=== PATIENT | male | born 1990 | race Two or more races ===

== ENCOUNTER 2023-12-06 11:17 | Outpatient (REF) | payer OTHER, SELFPAY | END 2023-12-06 11:18 | disposition home or self-care (01) | LOC: HO.BBR 11:17 | PROVIDERS: PCP Student in an Organized Health Care Education/Training Program; Visit Provider Internal Medicine | DX: D75.1 Secondary polycythemia (principal) | CPT/HCPCS: 85014; 85018; 99195 ==

== ENCOUNTER 2024-02-07 11:15 | Outpatient (REF) | payer OTHER, SELFPAY | END 2024-02-07 11:16 | disposition home or self-care (01) | LOC: HO.BBR 11:15 | PROVIDERS: PCP Student in an Organized Health Care Education/Training Program; Visit Provider Internal Medicine | DX: D75.1 Secondary polycythemia (principal) | CPT/HCPCS: 85014; 85018; 99195 ==

== ENCOUNTER 2024-04-24 11:10 | Outpatient (REF) | payer OTHER, SELFPAY | END 2024-04-24 11:11 | disposition home or self-care (01) | LOC: HO.BBR 11:10 | PROVIDERS: PCP Student in an Organized Health Care Education/Training Program; Visit Provider Internal Medicine | DX: D75.1 Secondary polycythemia (principal) | CPT/HCPCS: 85014; 85018; 99195 ==

== ENCOUNTER 2024-07-24 15:43 | Outpatient (REF) | payer OTHER, SELFPAY | END 2024-07-24 15:44 | disposition home or self-care (01) | LOC: HO.BBR 15:43 | PROVIDERS: PCP Student in an Organized Health Care Education/Training Program; Visit Provider Internal Medicine | DX: D75.1 Secondary polycythemia (principal) | CPT/HCPCS: 85018; 99195 ==

== ENCOUNTER 2024-10-23 14:55 | Outpatient (REF) | payer OTHER, SELFPAY | END 2024-10-23 14:56 | disposition home or self-care (01) | LOC: HO.BBR 14:55 | PROVIDERS: PCP Student in an Organized Health Care Education/Training Program; Visit Provider Internal Medicine | DX: D75.1 Secondary polycythemia (principal) | CPT/HCPCS: 85018; 99195 ==

== ENCOUNTER 2025-01-22 15:14 | Outpatient (REF) | payer OTHER, SELFPAY ==
--- OUTSIDE RECORDS SUMMARY | 2025-01-22 16:49 | XMS_ITS | Clinical Summary ---
Author Organization [facility] Address [address] [place] [address] Care Team Providers Care Pull Socket Assembler Name Role Phone Domenico Fuller MD Primary Care Provider [phone] Allergies No known active allergies Medications Medication Sig Dispensed Refills Start Date End Date Status lisinopril (PRINIVIL,ZESTRIL) tablet 10 mg Take 1 tablet (10 mg total) by mouth daily. 0 Active Magnesium 400 MG TABS Take by mouth. 0 Active vitamin D3 (CHOLECALCIFEROL) 1.25 MG (48395 UT) CAPS capsule Take 1 capsule (1.25 mg total) by mouth every 7 days. 0 Active atorvastatin (LIPITOR) tablet 20 mg Take 1 tablet (20 mg total) by mouth daily. 0 Active Active Problems Problem Noted Date Diagnosed Date Polycythemia vera 12/04/2023 Social History Tobacco Use Types Packs/Day Years Used Date Smoking Tobacco: Never Smokeless Tobacco: Never Tobacco Cessation:Counseling Given: Not Answered Alcohol Use Standard Drinks/Week Comments Yes 0 (1 standard drink = 0.6 oz pur e alcohol) socially Sex and Gender Information Value Date Recorded Sex Assigned at Not on file Gender Identity Not on file Sexual Orientation Not on file Job Start Date Occupation Industry Not on file Not on file Not on file Last Filed Vital Signs Vital Sign Reading Time Taken Comments Blood Pressure 156/80 03/06/2024 3:54 PM EDT Pulse 93 03/06/2024 3:54 PM EDT Temperature 36.3 ??C (97.4 ??F) 03/06/2024 3:54 PM ED T Respiratory Rate - - Oxygen Saturation 100% 03/06/2024 3:54 PM EDT Inhaled Oxygen Concentration - - Weight 117.1 kg (258 lb 3.2 oz) 03/06/2024 3:54 PM EDT Height 170.2 cm (5' 7 ) 03/06/2024 3:54 PM EDT Body Mass Index 40.44 03/06/2024 3:54 PM EDT Plan of Treatment Health Maintenance Due Date Last Done Comments Hepatitis B Vaccines (1 of 3 - 3-dose series) 1989 Hepatitis C Screening 1989 COVID-19 Vaccine (#1) 1994 Pneumococcal Vaccine (1 of 2 - PCV) 1995 Depression Screening 2001 Preventative Health Evaluation 2007 DTap / Tdap / Td (1 - Tdap) 2008 Influenza Vaccine (#1) 2024 RSV Ped < 20 months Aged Out No longe r eligible based on patient's age to complete this topic Care Teams Pull Socket Assembler Relationship Specialty Start Date End Date Domenico Fuller MD [address] [address] PCP - General Gastroenterology 12/04/23
--- OUTSIDE RECORDS SUMMARY | 2025-01-22 16:49 | XMS_ITS | Clinical Summary ---
Author Organization [facility] Address [address] [place] [address] Care Team Providers Care Parakeet Raiser Name Role Phone Unavailable Primary Care Provider Unavailabl e Source Comments PLEASE NOTE, if this patient is a minor, it may be UNLAWFUL to discuss sensitive information that is contained in these records (such as FAMILY PLANNING, MENTAL HEALTH or SUBSTANCE ABUSE) with the minor patient's parent or other person without the patient's specific authorization.[facility] Medications lisinopriL 10 mg tabletIndication s:Hypertension, unspecified type Take 1 Tablet by mouth once daily 90 Tablet 3 11/28/2023 Active Active Problems No known active problems Social History Tobacco Use Types Packs/Day Years Used Date Smoking Tobacco: Never Passive Smoke Exposure: Never Smokeless Tobacco: Never Alcohol Use Standard Drinks/Week Comments Never 0 (1 standard drink = 0.6 oz pur e alcohol) Social Connections Answer Date Recorded Social Connections and Isolation 0 11/28/2023 Financial Resource Strain Answer Date R ecorded Financial Resource Strain 0 2023 Stress Answer Date Recorded Stress 0 11/28/2023 Physical Activity Answer Date Recorded Physical Activity 0 11/28/2023 Food Insecurity Answer Date Recorded Food 0 11/28/2023 Transportation Needs Answer Date Record ed Transportation 0 11/28/2023 Housing Stability Answer Date Recorded Housing 0 11/28/2023 Safety and Environment Answer Date Mohsne rded Safety 0 11/28/2023 Utilities Answer Date Recorded Utilities 0 11/28/2023 Employment Answer Date Recorded Employment 0 11/28/2023 Sex and Gender Information Value Date Recorded Sex Assigned at Male 11/27/2023 8:05 AM PST Legal Sex Male 8:03 AM PST Gender Identity Male 11/27/2023 8:05 AM PST Sexual Orientation Straight 11/27/2023 8: 05 AM PST Last Filed Vital Signs Vital Sign Reading Time Taken Comments Blood Pressure 171/113 11/28/2023 10:21 AM EST Pulse 86 11/28/2023 10:21 AM EST Temperature 37.2 ??C (98.9 ??F) 11/28/2023 10:[address] Respiratory Rate 16 11/28/2023 10:21 AM EST Oxygen Saturation - - Inhaled Oxygen Concentration - - Weight 112.9 kg (249 lb) 11/28/2023 10:21 AM EST Height - - Body Mass Index - - Plan of Treatment Not on file Insurance [employer] NET
--- OUTSIDE RECORDS SUMMARY | 2025-01-22 16:49 | XMS_ITS | Clinical Summary ---
Author Organization [facility] Address [address] [place] [address] Care Team Providers Care Financial Manager Name Role Phone Domenico Fuller MD Primary Care Provider [phone] Allergies No known active allergies Medications lisinopriL (PRINIVIL,ZESTRI L) 10 mg tablet Take 1 tablet (10 mg total) by mouth daily. - Oral Active atorvastatin (LIPITOR) 20 mg tablet TAKE 1 TABLET BY MOUTH EVERY DAY 90 tablet 3 10/26/2024 Active magnesium oxide (MAG-OX) 400 mg (241.3 elemental magnesium) tablet TAKE 1 TABLET BY MOUTH EVERY DAY 90 tablet 1 10/26/2024 Active Active Problems Problem Noted Date Diagnosed Date Polycythemia vera 08/06/2024 Medical History Medical History Date Comments Primary hypertension 12/03/2023 DX:Primary hypertension Obesity (BMI 30-39.9) 12/03/2023 DX:Obesity (BMI 30-39.9) Mixed hyperlipidemia 12/25/2023 DX:Mixed hy perlipidemia Vitamin D deficiency 12/25/2023 DX:Vitamin D deficiency Polycythemia 12/25/2023 DX:Polycythemia Social History Tobacco Use Types Packs/Day Years Used Date Smoking Tobacco: Never Alcohol Use Standard Drinks/Week Comments Yes 4 (1 standard drink = 0.6 oz pur e alcohol) Sex and Gender Information Value Date Recorded Sex Assigned at Not on file Legal Sex Male 1:33 PM EDT Gender Identity Not on file Sexual Orientation Not on file Obstetrics History Last Filed Vital Signs Vital Sign Reading Time Taken Comments Blood Pressure 134/88 07/02/2024 11:24 AM EDT Pulse 94 07/02/2024 11:24 AM EDT Temperature - - Respiratory Rate - - Oxygen Saturation - - Inhaled Oxygen Concentration - - Weight 119 kg (262 lb) 07/02/2024 11:24 AM EDT Height 170.2 cm (5' 7 ) 07/02/2024 11:24 AM EDT Body Mass Index 41.03 07/02/2024 11:24 AM EDT Plan of Treatment Upcoming Encounters Date Type Department Care Team (Late st Contact Info) Description 03/22/2025 3:30 PM EDT Office Visit [facility] Hematology Oncology [address] [place] [phone] Mariza Lyn MD [address] [place] [phone] 04/22/2025 10:30 AM EDT Office Visit Bariatric Surgery - [place] [address] [phone] Ruben Alberts MD [address] [address] Health Maintenance Due Date Last Done Comments COVID-19 Vaccine (#1) 1994 DTaP,Tdap,and Td Vaccines (1 - Tdap) 2008 Hepatitis B Vaccines (1 of 3 - 19+ 3-dose series) 2008 Pneumococcal Vaccine: Pediatrics (0 to 5 Years) and At-Risk Patients (6 to 64 Years) (1 of 2 - PCV) 2008 Depression Screening 06/09/2024 Hepatitis C Screening 06/09/2024 Medicare Annual Wellness Visit 06/09/2024 Social Influencers of Health Screening 06/09/2024 Influenza Vaccine (#1) 2024 Hypertension/CHF/CAD Annual BMP Blood Test 07/03/2025 07/03/2024, 11/29/2023 Cholesterol Screening (Lipid Panel) 07/03/2029 07/03/2024, 11/29/2023 HIV Screening Completed 11/29/2023 HIB Vaccines Aged Out No longer eligi ble based on patient's age to complete this topic HPV Vaccines Aged Out No longer eligi ble based on patient's age to complete this topic Hepatitis A Vaccines Aged Out No long er eligible based on patient's age to complete this topic IPV Vaccines Aged Out No longer eligi ble based on patient's age to complete this topic MMR Vaccines Aged Out No longer eligi ble based on patient's age to complete this topic Meningococcal ACWY Vaccine Aged Out N o longer eligible based on patient's age to complete this topic Meningococcal B Vacine Aged Out No lo nger eligible based on patient's age to complete this topic RSV Immunization Patients Under 20 months Aged Out No longer eligible b ased on patient's age to complete this topic Varicella Vaccines Aged Out No longer eligible based on patient's age to complete this topic Procedures Procedure Name Priority Date/Time Associated Diagnosis Comments HIV SCREENING Routine 11/29/2023 ANNUAL BMP BLOOD TEST Routine 11/29/2023 LIPID PANEL Routine 11/29/2023 from Last 3 Months or Most Recently Relevant to Health Maintenance Results * Annual BMP Blood Test (11/29/2023) Pathologist [facility] Annual BMP Blood Test abstracted [facility] Provider HEALTH MAINTENANCE Final Result * HIV Screening (11/29/2023) [facility] HIV Screening abstracted [facility] Provider HEALTH MAINTENANCE Final Result * Lipid panel (11/29/2023) [facility] Triglycerides 0 <=0 mg/dL Comment:no interpretation Cholesterol 0 <=0 mg/dL Comment:no interpretation HDL 0 <=0 mg/dL Comment:no interpretation LDL Cholesterol 0 <=0 mg/dL Comment:no interpretation Blood Venous blood specimen / Unknown Historical Provider LAB BLOOD ORDERABLES Dawn l Result from Last 3 Months or Most Recently Relevant to Health Maintenance [place] [address] [address] [place] [address] MEDICARE Member Subscriber Plan / Payer (Ef fective 2024-Present) Name:Hollie Mahan Randolph Relation to Subscriber:Self Name:Randolph Olivas Payer ID:[id number] Type:Not on file Address: [address] [place] [id number] [facility] Care Teams Financial Manager Relationship Specialty Start Date End Date Domenico Fuller MD [address] [address] PCP - General 12/04/23
== END 2025-01-22 15:15 | disposition home or self-care (01) ==
LOC: HO.BBR 15:14
PROVIDERS: PCP Student in an Organized Health Care Education/Training Program; Visit Provider Internal Medicine
DX: D75.1 Secondary polycythemia (principal)
CPT/HCPCS: 85014; 85018; 99195

== ENCOUNTER 2025-04-23 15:42 | Outpatient (REF) | payer OTHER, SELFPAY | END 2025-04-23 15:43 | disposition home or self-care (01) | LOC: HO.BBR 15:42 | PROVIDERS: PCP Student in an Organized Health Care Education/Training Program; Visit Provider Internal Medicine | DX: D75.1 Secondary polycythemia (principal) | CPT/HCPCS: 85018; 99195 ==

== ENCOUNTER 2025-07-23 15:39 | Outpatient (REF) | payer OTHER, SELFPAY ==
--- OUTSIDE RECORDS SUMMARY | 2025-07-23 15:44 | XMS_ITS | Clinical Summary ---
Author Organization [facility] Address [address] [place] [address] Care Team Providers Care Physical Sciences Professor Name Role Phone Domenico Fuller MD Primary Care Provider [phone] Allergies No known active allergies Medications Medication Sig Dispensed Refills Start Date End Date Status lisinopril (PRINIVIL,ZESTRIL) tablet 10 mg Take 1 tablet (10 mg total) by mouth daily. 0 Active Magnesium 400 MG TABS Take by mouth. 0 Active vitamin D3 (CHOLECALCIFEROL) 1.25 MG (29253 UT) CAPS capsule Take 1 capsule (1.25 [...] 93 03/06/2024 3:54 PM EDT Temperature 36.3 C (97.4 F) 03/06/2024 3:54 PM EDT Respiratory Rate - - Oxygen Saturation 100% [...] (1 - Tdap) 2008 Influenza Vaccine (#1) 2025 RSV Ped < 20 months Aged Out No longe r eligible based on patient's age to complete this topic Care Teams Physical Sciences Professor Relationship Specialty Start Date End Date Domenico Fuller MD [address] [address] PCP - General Gastroenterology 12/04/23
--- OUTSIDE RECORDS SUMMARY | 2025-07-23 15:44 | XMS_ITS | Clinical Summary ---
Author Organization [facility] Address [address] [place] [address] Care Team Providers Care Nutritional Services Host Name Role Phone Unavailable Primary Care Provider [...] 0 11/28/2023 Safety and Environment Answer Date Mohsen rded Safety 0 11/28/2023 Utilities Answer Date [...] 86 11/28/2023 10:21 AM EST Temperature 37.2 C (98.9 F) 11/28/2023 10:21 AM EST Respiratory Rate 16 11/28/2023 10:21 AM EST Oxygen Saturation - - Inhaled Oxygen Concentration - - Weight 112.9 kg (249 lb) 11/28/2023 10:21 AM EST Height - - Body Mass Index - - Plan of Treatment Not on file Insurance [employer] NET
--- OUTSIDE RECORDS SUMMARY | 2025-07-23 15:44 | XMS_ITS | Clinical Summary ---
Author Organization [facility] Address [address] [place] [address] Phone Care Team Providers Care Paste Up Artist Name Role Phone Domenico Fuller MD Primary Care Provider [phone] Allergies No known active allergies Medications atorvastatin (LIPITOR) 20 mg tablet TAKE 1 TABLET BY MOUTH EVERY DAY 90 tablet 3 10/26/2024 Active magnesium oxide (MAG-OX) 400 mg (241.3 elemental magnesium) tablet TAKE 1 TABLET BY MOUTH EVERY DAY 90 tablet 1 10/26/2024 Active lisinopriL (PRINIVIL,ZESTRI L) 10 mg tablet TAKE 1 TABLET BY MOUTH EVERY DAY 90 tablet 1 03/18/2025 Active semaglutide (Wegovy) 0.25 mg/0.5 mL injection penIndications:C lass 2 severe obesity due to excess calories with serious comorbidity and body mass index (BMI) of 39.0 to 39.9 in adult ([facility] V24, [facility] V28) Inject 0.25 mg under the skin every 7 (seven) days. 4 mL 1 04/22/2025 Active Active Problems Problem Noted Date Diagnosed Date Polycythemia vera ([facility] V24, [facility] V28) Encounters Date Type Department Care Team Description 04/22/2025 10:30 AM EDT Office Visit Bariatric Surgery - [place] [address] [facility] [address] [place] [address] Ruben Alberts MD Class 2 severe obesity due to excess calories with serious comorbidity and body mass index (BMI) of 39.0 to 39.9 in adult ([facility] V24, [facility] V28) (Primary Dx) from Last 3 Months Medical History Medical History Date Comments Primary hypertension 12/03/2023 DX:Primary hypertension Obesity (BMI 30-39.9) 12/03/2023 DX:Obesity (BMI 30-39.9) Mixed hyperlipidemia 12/25/2023 DX:Mixed hy perlipidemia Vitamin D deficiency 12/25/2023 DX:Vitamin D deficiency Polycythemia 12/25/2023 DX:Polycythemia Social History Tobacco Use Types Packs/Day Years Used Date Smoking Tobacco: Never Tobacco Cessation:Counseling Given: Not Answered Alcohol Use Standard Drinks/Week Comments Yes 4 (1 standard drink = 0.6 oz pur e alcohol) Sex and Gender Information Value Date Recorded Sex Assigned at Not on file Legal Sex Male 1:33 PM EDT Gender Identity Not on file Sexual Orientation Not on file Obstetrics History Last Filed Vital Signs Vital Sign Reading Time Taken Comments Blood Pressure 145/89 04/22/2025 10:34 AM EDT Pulse 77 04/22/2025 10:34 AM EDT Temperature 36.6 C (97.8 F) 04/22/2025 10:34 AM EDT Respiratory Rate - - Oxygen Saturation 99% 03/18/2025 11:20 AM EDT Inhaled Oxygen Concentration - - Weight 117 kg (259 lb) 04/22/2025 10:34 AM EDT Height 170.2 cm (5' 7 ) 04/22/2025 10:34 AM EDT Body Mass Index 40.57 04/22/2025 10:34 AM EDT Plan of Treatment Upcoming Encounters Date Type Department Care Team (Late st Contact Info) Description 08/26/2025 1:00 PM EDT Office Visit Bariatric Surgery - [place] [address] [facility] [address] [place] [address] Ruben Alberts MD [address] [place] [address] 03/18/2026 10:45 AM EDT Office Visit [facility] Hematology Oncology [address] [place] [address] Joshua-Mariza Andres MD [address] [place] [phone] Health Maintenance Due Date Last Done Comments COVID-19 Vaccine (#1) 1994 DTaP,Tdap,and Td Vaccines (1 - Tdap) 2008 Hepatitis B Vaccines (1 of 3 - 19+ 3-dose series) 2008 Hepatitis C Screening 06/09/2024 Social Influencers of Health Screening 06/09/2024 Depression Screening 11/18/2024 Influenza Vaccine (#1) 2025 Hypertension/CHF/CAD Annual BMP Blood Test 03/18/2026 03/18/2025, 07/03/2024, 11/29/2023, Additional history exists Cholesterol Screening (Lipid Panel) 07/03/2029 07/03/2024, 11/29/2023, 11/28/2023, Additional history exists HIV Screening Completed 11/29/2023 HIB Vaccines Aged [...] age to complete this topic Meningococcal B Vaccine Aged Out No l onger eligible based on patient's age to complete this topic Pneumococcal Vaccine: Pediatrics (0 to 5 Years) and At-Risk Patients (6 to 49 Years) Aged Out No longer eligible based on patient's age to complete this topic RSV Immunization Patients Under 20 months Aged Out No longer eligible based on patient's age to complete this topic Varicella Vaccines Aged Out No longer eligible based on patient's age to complete this topic Procedures Procedure Name Priority Date/Time Associated Diagnosis Comments COMPREHENSIVE METABOLIC PANEL Routine 03/18/2025 11:44 AM EDT Polycythemia vera ([facility]/HCC V24, CMS/HCC V28) HIV SCREENING Routine 11/29/2023 LIPID PANEL Routine 11/29/2023 from Last 3 Months or Most Recently Relevant to Health Maintenance Results * (ABNORMAL) Comprehensive metabolic panel (03/18/2025 11:44 AM EDT) Sodium 137 133 - 145 mmol/L LAB CHEMISTRY METHOD 03/18/2025 1:19 PM [facility] Potassium 4.4 3.5 - 5.5 mmol/L LAB CHEMISTRY METHOD 03/18/2025 1:19 PM [facility] Chloride 104 96 - 110 mmol/L LAB CHEMISTRY METHOD 03/18/2025 1:19 PM [facility] CO2 28 21 - 32 mmol/L LAB CHEMISTRY METHOD 03/18/2025 1:19 PM [facility] Anion Gap 5 3 - 11 LAB CHEMISTRY METHOD 03/18/2025 1:19 PM [facility] Glucose 125(H) 70 - 100 mg/dL LAB CHEMISTRY METHOD 03/18/2025 1:19 PM [facility] BUN 18 5 - 25 mg/dL LAB CHEMISTRY METHOD 03/18/2025 1:19 PM [facility] Creatinine 0.79 0.70 - 1.30 mg/dL LAB CHEMISTRY METHOD 03/18/2025 1:19 PM [facility] eGFR 119 >=60 mL/min/1. 73m2 LAB CHEMISTRY METHOD 03/18/2025 1:19 PM [facility] Comment:Calculation based on the Chronic Kidney Disease Epidemiology Collaboration (CKD-EPI) equation refit without adjustment for race. BUN/Creatinine Ratio 22.8 LAB CHEMISTRY METHOD 03/18/2025 1:19 PM [facility] Calcium 9.2 8.5 - 10.5 mg/dL LAB CHEMISTRY METHOD 03/18/2025 1:19 PM [facility] AST (SGOT) 17 10 - 42 unit/L LAB CHEMISTRY METHOD 03/18/2025 1:19 PM EDT [facility] ALT (SGPT) 31 10 - 60 unit/L LAB CHEMISTRY METHOD 03/18/2025 1:19 PM EDT [facility] Alkaline Phosphatase 156(H) 42 - 121 unit/L LAB CHEMISTRY METHOD 03/18/2025 1:19 PM EDT [facility] Total Protein 7.5 6.0 - 8.0 g/dL LAB CHEMISTRY METHOD 03/18/2025 1:19 PM EDT [facility] Albumin 4.0 3.2 - 5.0 g/dL LAB CHEMISTRY METHOD 03/18/2025 1:19 PM EDT [facility] Total Bilirubin 0.5 0.0 - 1.4 mg/dL LAB CHEMISTRY METHOD 03/18/2025 1:19 PM EDT [facility] Blood Venous blood specimen / Unknown Venipuncture / Unknown 03/18/2025 11:44 AM EDT 03/18/2025 12:35 PM EDT Mariza Lyn MD LAB BLOOD ORDERABLE S Final Result [facility] [address] [place] [address], * HIV Screening (11/29/2023) Pathologist [facility] HIV Screening abstracted Historical Provider HEALTH MAINTENANCE Final Result * Lipid panel (11/29/2023) Triglycerides 0 <=0 mg/dL Comment:no interpretation Cholesterol 0 <=0 mg/dL Comment:no interpretation HDL 0 <=0 mg/dL Comment:no interpretation LDL Cholesterol 0 <=0 mg/dL Comment:no interpretation Blood Venous blood specimen / Unknown Historical Provider LAB BLOOD ORDERABLES Dawn l Result from Last 3 Months or Most Recently Relevant to Health Maintenance Insurance [facility] [address] [id number] Care Teams Paste Up Artist Relationship Specialty Start Date End Date Domenico Fuller MD [address] [address] PCP - General 12/04/23
== END 2025-07-23 15:40 | disposition home or self-care (01) ==
LOC: HO.BBR 15:39
PROVIDERS: PCP Student in an Organized Health Care Education/Training Program; Visit Provider Internal Medicine
DX: D75.1 Secondary polycythemia (principal)
CPT/HCPCS: 85014; 85018; 99195

== ENCOUNTER 2025-10-22 14:39 | Outpatient (REF) | payer OTHER, SELFPAY | END 2025-10-22 14:40 | disposition home or self-care (01) | LOC: HO.BBR 14:39 | PROVIDERS: PCP Student in an Organized Health Care Education/Training Program; Visit Provider Internal Medicine | DX: D75.1 Secondary polycythemia (principal) | CPT/HCPCS: 85018; 99195 ==